=== PATIENT | female | born 1950 | race Two or more races ===

== ENCOUNTER 2023-12-29 12:07 | Emergency (ER) | payer OTHER ==
[~2023-12-29] VITALS: Ht 170.2 cm; Wt 99.8 kg
[~2023-12-29 12:07] MED LIST: HYZAAR 100-121 UDTAB; LIPITOR20 MG; NORVASC10 MG; SYNTHROID75 MCG
[2023-12-29] MEDS ORDERED: DEXAMETHASONE SODIUM PHOSPHATE 4 MG/ML VIAL IM STA (12:46)
[2023-12-29] MEDS ORDERED: GUAIFENESIN 200 MG/10 ML BLIST.PACK PO STA (12:47)
[2023-12-29] MEDS ORDERED: KETOROLAC TROMETHAMINE 30 MG VIAL IM STA (12:47)
[2023-12-29] MEDS ORDERED: KETOROLAC TROMETHAMINE 30 MG VIAL ONE ×2 (12:53→13:43)
[2023-12-29] MEDS ORDERED: DEXAMETHASONE SODIUM PHOSPHATE 4 MG/ML VIAL ONE (12:53)
[2023-12-29] MEDS ORDERED: GUAIFENESIN 200 MG/10 ML BLIST.PACK PO ONE (12:54)
[2023-12-29 15:10] LABS: HEMATOCRIT 40.4 % (36.0-45.00); HEMOGLOBIN 13.8 g/dL (12.0-15.00); MEAN CELL VOLUME 86.8 fL (80.00-100.00); MEAN CORPUSCULAR HEMOGLOBIN 29.6 pg (27.00-32.0); MEAN CORPUSCULAR HGB CONC 34.1 g/dl (32.0-36.0); PLATELET COUNT 259 K/uL (150-450); RED BLOOD COUNT 4.65 M/uL (4.00-6.00); RED CELL DISTRIBUTION WIDTH 13.3 % (11.5-14.5)
== END 2023-12-29 17:56 | disposition home or self-care (01) ==
LOC: ER 12:08
PROVIDERS: General Practice
DX: M79.671 Pain in right foot (principal); M79.672 Pain in left foot; Z20.822 Contact with and (suspected) exposure to COVID-19; I10 Essential (primary) hypertension; E03.8 Other specified hypothyroidism; Z88.5 Allergy status to narcotic agent; Z88.6 Allergy status to analgesic agent
CPT/HCPCS: 36415; 71046; 73610; 73630; 96372; 99283; J1100; J1885

== ENCOUNTER 2024-05-20 10:59 | Emergency (ER) | payer OTHER ==
[~2024-05-20] VITALS: Ht 170.2 cm; Wt 108.4 kg
[2024-05-20] MEDS ORDERED: LEVALBUTEROL HCL 1.25 MG/3 ML SOLUTION IH SCH (16:00)
[2024-05-20] MEDS ORDERED: IPRATROPIUM BROMIDE 0.5 MG/2.5 ML AMPUL.NEB IH SCH (16:00)
[2024-05-20] MEDS ORDERED: GUAIFENESIN/DEXTROMETHORPHAN 10ML BLIST.PACK PO ONE (16:15)
[2024-05-20 16:48] LABS: HEMATOCRIT 42.5 % (36.0-45.00); HEMOGLOBIN 14.6 g/dL (12.0-15.00); MEAN CELL VOLUME 86.1 fL (80.00-100.00); MEAN CORPUSCULAR HEMOGLOBIN 29.7 pg (27.00-32.0); MEAN CORPUSCULAR HGB CONC 34.5 g/dl (32.0-36.0); PLATELET COUNT 216 K/uL (150-450); RED BLOOD COUNT 4.94 M/uL (4.00-6.00); RED CELL DISTRIBUTION WIDTH 14.1 % (11.5-14.5)
[2024-05-20] MEDS ORDERED: XOPENEX HFA15 GM IH (20:39)
[2024-05-20] MEDS ORDERED: OSEL75CA PO (20:39)
[2024-05-20] MEDS ORDERED: MEDROLPACK PO (20:39)
[2024-05-20] MEDS ORDERED: TUSSIN DM LIQU118 ML PO (20:39)
[2024-05-20] MEDS ORDERED: ATROVENT HFA12.9 GM IH (20:39)
[2024-05-20] MEDS ORDERED: OSELTAMIVIR PHOSPHATE 75 MG CAPSULE PO ONE (20:45)
== END 2024-05-20 21:17 | disposition home or self-care (01) ==
LOC: ER 11:01
PROVIDERS: Nurse Practitioner Family
DX: J10.1 Influenza due to other identified influenza virus with other respiratory manifestations (principal); R05.9 Cough, unspecified; Z20.822 Contact with and (suspected) exposure to COVID-19; I10 Essential (primary) hypertension; E03.8 Other specified hypothyroidism; Z88.5 Allergy status to narcotic agent; Z88.6 Allergy status to analgesic agent